=== PATIENT | male | born 1945 | race Caucasian/White ===

== ENCOUNTER 2020-05-31 07:29 | Day surgery (SDC) | payer MEDICARE, OTHER ==
[2020-05-29 11:06] LABS: BASOPHILS % (AUTO) 0.6 % (0-1); EOSINOPHILS # (AUTO) 0.1 X10'3 (0-0.9); EOSINOPHILS % (AUTO) 1.4 % (0-6); HEMATOCRIT 36.1 % (42.0-52.0); LYMPHOCYTES % (AUTO) 17.5 % (21-51); MEAN CORPUSCULAR HEMOGLOBIN 31.2 PG (27.0-31.0); MEAN CORPUSCULAR HGB CONC 33.3 g/dL (33.0-36.5); MEAN CORPUSCULAR VOLUME 93.7 FL (78-98); MEAN PLATELET VOLUME 8.9 FL (7.4-10.4); MONOCYTES # (AUTO) 0.6 X10'3 (0-0.9); MONOCYTES % (AUTO) 10.2 % (2-12); NEUTROPHILS % (AUTO) 70.3 % (42-75); PLATELET COUNT 244 X10'3 (140-440); RED BLOOD COUNT 3.85 X10'6 (4.70-6.10); RED CELL DISTRIBUTION WIDTH 14.2 % (11.5-14.5); WHITE BLOOD COUNT 5.7 X10'3 (4.5-11.0)
[2020-05-29 11:16] LABS: ALANINE AMINOTRANSFERASE 14 U/L (12-78); ALBUMIN 3.5 G/DL (3.4-5.0); ALKALINE PHOSPHATASE 87 IU/L (46-116); ANION GAP 1 (8-16); ASPARTATE AMINO TRANSFERASE 16 U/L (10-37); BILIRUBIN,TOTAL 0.4 MG/DL (0.1-1.0); BLOOD UREA NITROGEN 28 MG/DL (7-18); BUN/CREATININE RATIO 20.9 (5.4-32.0); CHLORIDE 108 MMOL/L (99-107); CREATININE 1.34 MG/DL (0.60-1.10); GLUCOSE 88 MG/DL (70-104); POTASSIUM 4.1 MMOL/L (3.5-5.1); SODIUM 139 MMOL/L (135-145); TOTAL CARBON DIOXIDE 29.8 MMOL/L (24-32); TOTAL PROTEIN 7.1 G/DL (6.4-8.2); eGFR 52 ML/MIN
[2020-05-29 11:17] LABS: PARTIAL THROMBOPLASTIN TIME 28 SECONDS (22-32)
[2020-05-31] VITALS (13 sets, daily range): BP systolic 116–168; BP diastolic 47–89
[~2020-05-31] VITALS: Ht 172.7 cm; Wt 73.5 kg
[2020-05-31] MEDS ORDERED: normal saline 1,000 ML IV SCH (07:55)
[2020-05-31] MEDS ORDERED: LORazepam 0.5 MG tablet PO PRN (07:55)
[2020-05-31] MEDS ORDERED: diphenhydrAMINE 25mg capsule PO PRN (07:55)
[2020-05-31] MEDS ORDERED: nitroGLYCERIN 0.4mg SUBLingual tab SL PRN (07:55)
[2020-05-31] MEDS ORDERED: iron PO (08:23)
[2020-05-31] MEDS ORDERED: MULT-1085 PO (08:23)
[2020-05-31] MEDS ORDERED: DENO60DI SUBCUT (08:23)
[2020-05-31] MEDS ORDERED: ATOR20TA PO (08:23)
[2020-05-31] MEDS ORDERED: NITR0.4T48 SL (08:23)
[2020-05-31] MEDS ORDERED: CALC-331 PO (08:23)
[2020-05-31] MEDS ORDERED: BIMA2.5D OP (08:23)
[2020-05-31] MEDS ORDERED: DORZ10DR2 RIGHTEYE (08:23)
[2020-05-31] MEDS ORDERED: ENZA40CA PO (08:23)
[2020-05-31] MEDS ORDERED: iohexol 350MG/ML 100ml bottle IV ONE (08:45)
[2020-05-31] MEDS ORDERED: fentaNYL/PF 50MCG/1 ML 2ML syringe ONE (08:45)
[2020-05-31] MEDS ORDERED: LIDOcaine 1% (10mg/ml)w/preservative injection 20ml MDV ONE (08:45)
[2020-05-31] MEDS ORDERED: midazolam 2 mg/2 ml injection ONE (08:45)
[2020-05-31] MEDS ORDERED: iohexol 350 MG/ML 50ML vial IV ONE ×4 (08:45→10:02)
[2020-05-31] MEDS ORDERED: nitroGLYCERIN-Tridil 50MG/D5W 250 ML IV ONE (09:53)
[2020-05-31] MEDS ORDERED: ondansetron/PF 4mg/2ml inj IV PRN (11:20)
[2020-05-31] MEDS ORDERED: HYDROcodone/acetaminophen 10/325mg tab PO PRN (11:25)
[2020-05-31] MEDS ORDERED: HYDROcodone/acetaminophen 5mg/325mg tablet PO PRN (11:25)
[2020-05-31] MEDS ORDERED: proCHLORperazine 10 MG/2 ml inj IV PRN (11:25)
[2020-05-31] MEDS ORDERED: OXAZEpam 15mg capsule PO PRN (11:30)
== END 2020-05-31 18:16 | disposition home or self-care (01) ==
LOC: SSTAY O 07:29
PROVIDERS: ATTEND Internal Medicine Cardiovascular Disease
DX: R94.39 Abnormal result of other cardiovascular function study (principal); T82.858A Stenosis of other vascular prosthetic devices, implants and grafts, initial encounter; I25.10 Atherosclerotic heart disease of native coronary artery without angina pectoris; I25.82 Chronic total occlusion of coronary artery; M48.062 Spinal stenosis, lumbar region with neurogenic claudication; I25.2 Old myocardial infarction; I10 Essential (primary) hypertension; E78.5 Hyperlipidemia, unspecified; Z87.891 Personal history of nicotine dependence; Z90.79 Acquired absence of other genital organ(s); Y83.8 Other surgical procedures as the cause of abnormal reaction of the patient, or of later complication, without mention of misadventure at the time of the procedure; Y92.89 Other specified places as the place of occurrence of the external cause
CPT/HCPCS: 36415; 71046; 80053; 85025; 85610; 85730; 93005; 93459; 93567; 99152; 99153; C1760; C1769; J1644; J2001; J2250; J3010; J7030; Q0163; Q9967; A4620; J3490

== ENCOUNTER 2022-06-26 14:08 | Outpatient (CLI) | payer MEDICARE, OTHER ==
[~2022-06-26 14:08] MED LIST: ATOR20TA PO; BIMA2.5D OP; CALC-331 PO; DENO60DI SUBCUT; DORZ10DR2 RIGHTEYE; ENZA40CA PO; MULT-1085 PO; NITR0.4T48 SL; iron PO
== END 2022-06-26 23:59 | disposition home or self-care (01) ==
LOC: RAD 14:08
PROVIDERS: ATTEND Otolaryngology
DX: K21.9 Gastro-esophageal reflux disease without esophagitis (principal); R49.0 Dysphonia; R13.14 Dysphagia, pharyngoesophageal phase; K22.89 Other specified disease of esophagus
CPT/HCPCS: 74230